=== PATIENT | male | born 1945 | race Caucasian/White ===

== ENCOUNTER 2019-05-25 14:19 | Inpatient (IN) | payer MEDICARE, OTHER ==
[~2019-05-25] VITALS: Ht 175.3 cm; Wt 82.1 kg
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
[2019-05-25 15:10] LABS: ALBUMIN 3.9 g/dL (3.4-5.0); BILIRUBIN,DIRECT 0.2 mg/dL (0.0-0.2); BILIRUBIN,TOTAL 0.9 mg/dL (0.2-1.0); CALCIUM, SERUM 9.2 mg/dL (8.5-10.1); CREATININE 1.3 mg/dL (0.6-1.3); POTASSIUM 4.6 mmol/L (3.5-5.1); TOTAL PROTEIN, SERUM 7.4 g/dL (6.4-8.2)
--- NOTE | 2019-05-25 15:21 | NUR ---
patient came back from CT
[2019-05-25] MEDS ORDERED: BUPR200T PO (15:43)
[2019-05-25] MEDS ORDERED: FINA5TAB11 PO (15:43)
[2019-05-25] MEDS ORDERED: PRAV40TA3 PO (15:43)
[2019-05-25] MEDS ORDERED: TRINTELLIX PO (15:43)
[2019-05-25] MEDS ORDERED: ONDA8TAB12 PO (15:43)
[2019-05-25] MEDS ORDERED: TAMS-12 PO (15:43)
[2019-05-25 15:52] LABS: BASOPHILS # (AUTO) 0.1 /CMM (0.0-0.2); EOSINOPHILS % (AUTO) 0.3 % (0.0-6.0); HEMATOCRIT 46 % (39-51); LYMPHOCYTES # (AUTO) 0.8 /CMM (0.8-4.8); LYMPHOCYTES % (AUTO) 11.4 % (20.0-44.0); MEAN CORPUSCULAR HGB CONC 34 g/dl (31.0-36.0); MEAN CORPUSCULAR VOLUME 95 fL (80-96); MONOCYTES # (AUTO) 0.3 /CMM (0.1-1.30); MONOCYTES % (AUTO) 3.9 % (2.0-12.0); NEUTROPHILS % (AUTO) 83.4 % (43.0-81.0); PLATELET COUNT (AUTO) 281 /CMM (150-450); WHITE BLOOD COUNT (AUTO) 7.2 K/uL (4.3-11.0)
[2019-05-25] MEDS ORDERED: ASPIRIN 325 MG TABLET ONE (15:56)
[2019-05-25] MEDS ORDERED: INSULIN REGULAR, HUMAN 100 UNIT/ML 10 ML VIAL SQ ONE (16:00)
[2019-05-25] MEDS ORDERED: ASPIRIN 325 MG TABLET PO ONE (16:00)
[2019-05-25] MEDS ORDERED: INSULIN REGULAR, HUMAN 100 UNIT/ML 10 ML VIAL ONE (16:04)
--- NOTE | 2019-05-25 16:19 | NUR ---
CALLED [facility] [phone] WILL CALL BACK.
--- NOTE | 2019-05-25 16:32 | NUR ---
TEXTED DR. PRESLEY FOR MRI APPROVAL.
--- NOTE | 2019-05-25 16:59 | NUR ---
Spoke with Ester at [facility]. No assigned physician. MD will call soon.
--- NOTE | 2019-05-25 17:16 | NUR ---
@17:14, Called [facility] at [phone]. Spoke with Cammie. Advised Cammie that we placed our first call to [place] at 16:19 and we haven't received any call from their MD. I explained Cammie that legally they have 30 min to call us back and we are not required to make another call. I advised Cammie that they have 10 min ro call us back. If no call will be received, we will admit the patient and Dorcas will be responsible for IP admission. Per Cammie, Dr. Mares will call us within 10 minutes. MENDEZ Douglas RN, made aware.
--- NOTE | 2019-05-25 17:27 | NUR ---
patient wheeled via wheelchair to MRI
--- NOTE | 2019-05-25 17:43 | NUR ---
patient came back from MRI
--- NOTE | 2019-05-25 18:35 | NUR ---
food provided to the patient.
--- NOTE | 2019-05-25 18:39 | NUR ---
[facility] Dr[facility] Mares will call back.
--- NOTE | 2019-05-25 19:18 | NUR ---
report given to Noelle for ayanna
--- NOTE | 2019-05-25 19:20 | NUR ---
Pt is using a urinal. Urine sample obtained and sent to lab.
--- NOTE | 2019-05-25 19:27 | NUR ---
Dr Mccabe is at the bedside speaking to the pt re: Repeat Troponin elevation.
--- NOTE | 2019-05-25 19:30 | NUR ---
PT REC'D A DINNER TRAY AND IS TOLERATING PO WELL. PT'S VSS.
--- NOTE | 2019-05-25 19:37 | NUR ---
CALLED [facility] FOR UPDATE, [facility] STILL WAITING FOR CADIOLOGIST TO CALL BACK
--- NOTE | 2019-05-25 19:58 | NUR ---
PAGED COMPLIANCE INTERN HEAD BOYS TENNIS COACH DR. BARBOZA
[2019-05-25 20:00] VITALS: BP 152/78
--- NOTE | 2019-05-25 20:00 | NUR ---
DR. BARBOZA ACCEPTS HERE
--- NOTE | 2019-05-25 20:35 | NUR ---
BED ASSIGNMENT DAVID [id number]
--- NOTE | 2019-05-25 20:37 | NUR ---
CALLING REPORT TO DAVID DE LA GARZA.
--- NOTE | 2019-05-25 21:11 | NUR ---
CALLING REPORT TO FREDERIC PIZARRO
--- NOTE | 2019-05-25 22:40 | NUR ---
RN NOTES SEEN AND EXAMINED BY TAMEKA AT BEDSIDE AND SPOKE AND GET DIRECT INFO TO PATIENT, AND INFORMED ABOUT POC.
[2019-05-25] MEDS ORDERED: MAG HYDROX/AL HYDROX/SIMETH 30 ML UDC PO PRN (23:00)
[2019-05-25] MEDS ORDERED: MAGNESIUM HYDROXIDE 30 ML UDC PO PRN (23:00)
[2019-05-25] MEDS ORDERED: Z GUARD REMEDY 2 OZ OINT TP PRN (23:00)
[2019-05-25] MEDS ORDERED: ONDANSETRON HCL/PF 4 MG/2 ML VIAL IVP PRN (23:00)
[2019-05-25] MEDS ORDERED: DEXTROSE 50%-WATER 50 ML DISP.SYRIN IV PRN (23:00)
[2019-05-25] MEDS ORDERED: ACETAMINOPHEN 325 MG TABLET PO PRN (23:00)
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
[2019-05-25] MEDS: IV NS 0.9% 1,000 ML IV PRN (23:35)
[2019-05-25] MEDS: ENOXAPARIN SODIUM 40 MG/0.4 ML DISP.SYRIN SQ SCH (23:36)
[2019-05-26] VITALS (9 sets, daily range): BP systolic 119–163; BP diastolic 59–93
--- NOTE | 2019-05-26 02:10 | NUR ---
RN NOTES CALLED AND SPOKE TO TAMEKA LADLE PULLER REGARDING PATIENT REQUESTED OF SLEEPING PILL, PER LADLE PULLER ITS NOT GOOD FOR HIM TO TAKE AT HIS LATE AND HE DOESN'T WANT THE PATIENT TO BE SLEEPY OR LETHARGY THAT INTERFERES THE ASSESSMENT IN THE MORNING. EXPLAINED RISK AND BENEFITS TO PATIENT AND PATIENT AGREED.
[2019-05-26 06:18] LABS: BASOPHILS # (AUTO) 0.1 /CMM (0.0-0.2); BASOPHILS % (AUTO) 0.8 % (0.0-2.0); EOSINOPHILS % (AUTO) 1.4 % (0.0-6.0); HEMATOCRIT 42 % (39-51); HEMOGLOBIN 14.7 g/dL (13.5-17.5); LYMPHOCYTES # (AUTO) 2.7 /CMM (0.8-4.8); MEAN CORPUSCULAR HGB CONC 35 g/dl (31.0-36.0); MEAN CORPUSCULAR VOLUME 93 fL (80-96); MONOCYTES # (AUTO) 0.6 /CMM (0.1-1.30); MONOCYTES % (AUTO) 6.5 % (2.0-12.0); NEUTROPHILS # (AUTO) 5.1 /CMM (1.8-8.9); NEUTROPHILS % (AUTO) 59.3 % (43.0-81.0); PLATELET COUNT (AUTO) 268 /CMM (150-450); RED BLOOD CELL COUNT(AUTO) 4.53 MIL/uL (4.5-6.0); WHITE BLOOD COUNT (AUTO) 8.5 K/uL (4.3-11.0)
[2019-05-26 06:34] LABS: ALBUMIN 3.4 g/dL (3.4-5.0); BILIRUBIN,TOTAL 0.7 mg/dL (0.2-1.0); CALCIUM, SERUM 8.5 mg/dL (8.5-10.1); MAGNESIUM 1.8 mg/dL (1.8-2.4); PHOSPHORUS 3.8 mg/dL (2.5-4.9); POTASSIUM 3.5 mmol/L (3.5-5.1); TOTAL PROTEIN, SERUM 6.8 g/dL (6.4-8.2)
[2019-05-26 06:42] LABS: THYROID STIMULATING HORMONE 1.006 uIU/mL (0.358-3.74)
--- NOTE | 2019-05-26 06:54 | NUR ---
RN NOTES PATIENT ASLEEP ABOUT 2-4 HRS ON BED. BREATHING EVEN AND UNLABORED IN RA SATURATION >92%. AFEBRILE VSS. NO CHANGE OF MENTAL STATUS. NO SIGNIFICANT WEAKNESSES PRESENT. NO SIGNIFICANT CHANGES. ALL NEEDS ATTENDED. USED URINAL FOR BLADDER. KEPT PT CLEAN AND DRY. TROPONIN STILL TRENDING UP. MD AWARE. WILL ENDORSED CONTINUITY OF CARE TO AM NURSE.
--- NOTE | 2019-05-26 07:30 | NUR ---
RN NOTE RECIEVED PATIENT IN BED AWAKE AND ALERT X 3. PT HOB BED ELEVATED. NO SOB. ON ROOM AIR. NO COMPLAINTS OF PAIN OR DISCOMFORT. WITH SALINE LOCK ON LAC. PLAN OF CARE DISCUSSED. VITAL SIGNS STABLE. WILL CONTINUE TO MONITOR.
[2019-05-26] MEDS: BLOOD SUGAR DIAGNOSTIC 1 EACH STRIP IN SCH ×4 (08:07→22:39)
[2019-05-26] MEDS: INSULIN REGULAR, HUMAN 100 UNIT/ML 3 ML VIAL SQ PRN ×4 (08:08→23:05)
[2019-05-26] MEDS: PANTOPRAZOLE 40 MG TABLET.DR PO SCH (08:09)
--- NOTE | 2019-05-26 08:31 | NUR ---
RN NOTES DR. KOHLI AT THE UNIT. MADE AWARE OF THE TROPONIN FROM 0.124 TO 0.146.
[2019-05-26] MEDS: TAMSULOSIN 0.4 MG CAP.SR.24H PO SCH (08:47)
[2019-05-26] MEDS: FINASTERIDE (5 MG) 5 MG TABLET PO SCH (08:47)
[2019-05-26] MEDS: ASPIRIN EC 81 MG TABLET.DR PO SCH (08:47)
[2019-05-26] MEDS ORDERED: ATORVASTATIN 10 MG TABLET PO SCH ×2 (09:00→22:00)
--- NOTE | 2019-05-26 11:00 | NUR ---
RN NOTES CONSENT FOR CTCA OBTAINED FROM THE PATIENT HIMSELF. PROCEDURE EXPLAINED BY DR. ANAND, PATIENT VERBALIZED UNDERSTANDING
[2019-05-26] MEDS: IV NS 0.9% 1,000 ML IV PRN (13:51)
[2019-05-26] MEDS ORDERED: IV NS 0.9% 250 ML IV ONE ×2 (14:36→16:02)
[2019-05-26] MEDS ORDERED: IOHEXOL-350 100 ML VIAL IV ONE ×2 (14:36→15:59)
[2019-05-26] MEDS ORDERED: CT SWABBABLE VALVE TRANS SET 1 EA INFUS.SET MC ONE ×2 (14:36→16:02)
--- NOTE | 2019-05-26 15:00 | NUR ---
RN NOTES PATIENT LEFT FOR CTCA
[2019-05-26] MEDS ORDERED: METOPROLOL TARTRATE INJ 5 MG/5 ML AMPUL ONE (15:36)
[2019-05-26] MEDS: DOCUSATE SODIUM 100 MG CAPSULE PO SCH (17:34)
--- NOTE | 2019-05-26 19:00 | NUR ---
RN NOTE PATIENT AWAKE AND ALERT WITHOUT COMPLAINTS OF PAIN OR DISCOMFORT. IVF RUNNING AT 75ML/HR ORDERED. ENDORSED TO ONCOMING RN.
--- NOTE | 2019-05-26 19:30 | NUR ---
OYSTER SORTER NOTE PATIENT IN BED A/O X 4. PATIENT CURRENTLY BEING SEEN BY ELLY REBOLLEDO. PATIENT SITTING UP IN BED NO S/S OF ACUTE DISTRESS PATIENT HR 69. PATIENT DENIES CHEST PAIN/SOB ON RA. NO A/A OF ACUTE DISTRESS. PATIENT HAS LAC 20 G RUNNING AT 75 ML/HR NO S/S OF INFECTION OR INFILTRATION. POC AND GOALS FOR THE SHIFT DISCUSSED WITH PATIENT, PATIENT VERBALIZE UNDERSTANDING. PATIENT CALL LIGHT IN HAND. INSTRUCTIONS ON USE OF CALL LIGHT GIVEN. SAFETY PRECAUTIONS IN PLACE, RN WILL CONTINUE TO MONITOR FOR CHANGES.
[2019-05-26] MEDS ORDERED: PRAVASTATIN SODIUM 20 MG TABLET PO SCH (22:00)
[2019-05-26] MEDS: ENOXAPARIN SODIUM 40 MG/0.4 ML DISP.SYRIN SQ SCH (22:52)
[2019-05-27] VITALS (8 sets, daily range): BP systolic 104–159; BP diastolic 64–82
[2019-05-27] MEDS: HYDROCODONE/APAP 5/325MG 1 EACH TABLET PO PRN ×3 (01:58→16:00)
--- NOTE | 2019-05-27 02:21 | NUR ---
CATERING SERVICE MANAGER NOTE PATIENT REPORT GIVEN TO MARIAJOSE DE LA GARZA FOR DINH.
[2019-05-27] MEDS: IV NS 0.9% 1,000 ML IV PRN (05:47)
[2019-05-27 06:23] LABS: BASOPHILS % (AUTO) 0.7 % (0.0-2.0); EOSINOPHILS % (AUTO) 2.7 % (0.0-6.0); HEMATOCRIT 42 % (39-51); HEMOGLOBIN 14.7 g/dL (13.5-17.5); LYMPHOCYTES # (AUTO) 2.8 /CMM (0.8-4.8); LYMPHOCYTES % (AUTO) 41.7 % (20.0-44.0); MEAN CORPUSCULAR HGB CONC 35 g/dl (31.0-36.0); MEAN CORPUSCULAR VOLUME 93 fL (80-96); MONOCYTES # (AUTO) 0.4 /CMM (0.1-1.30); MONOCYTES % (AUTO) 6.6 % (2.0-12.0); NEUTROPHILS # (AUTO) 3.3 /CMM (1.8-8.9); NEUTROPHILS % (AUTO) 48.3 % (43.0-81.0); PLATELET COUNT (AUTO) 259 /CMM (150-450); RED BLOOD CELL COUNT(AUTO) 4.48 MIL/uL (4.5-6.0); WHITE BLOOD COUNT (AUTO) 6.8 K/uL (4.3-11.0)
[2019-05-27 06:36] LABS: CALCIUM, SERUM 8.6 mg/dL (8.5-10.1); POTASSIUM 3.6 mmol/L (3.5-5.1)
--- NOTE | 2019-05-27 06:42 | NUR ---
TOBACCO PACKING MACHINE OPERATOR CLOSING NOTES PATIENT RESTING IN BED. NO ACUTE CHANGES SINCE DINH TRANSFER. BREATHING EVEN AND UNLABORED ON ROOM AIR. NO SOB OBSERVED. DENIES PAIN OR DISCOMFORT. SR ON TELE MONITOR. REMAINED AFEBRILE. IVF INFUSING AT 75ML/HR. REFUSED TO HAVE BED SHEETS CHANGED THIS AM. PER PATIENT, "HE'S OK FOR NOW." ALL OTHER NEEDS ATTENDED TO. SAFETY MEASURES IN PLACE. CALL LIGHT WITHIN REACH. WILL ENDORSE TO ONCOMING NURSE FOR DINH.
--- NOTE | 2019-05-27 07:35 | NUR ---
OUTBOUND TELEMARKETING REPRESENTATIVE NOTES PATIENT RECEIVED RESTING INSIDE ROOM. AWAKE, ALERT AND ORIENTED X 3, VERBALLY RESPONSIVE AND RESPONDS TO VERBAL AND TACTILE STIMULI. BREATHING EVEN AND UNLABORED. NO ACUTE DISTRESS NOTED. PATIENT CALM AND RELAXED. SAFETY PRECAUTIONS IN PLACE. WILL CONTINUE TO MONITOR. BED LOCKED AND IN LOW POSITION. BILATERAL UPPER SIDE RAILS UP AND LOCKED. CALL LIGHT WITHIN EASY REACH
[2019-05-27] MEDS: ASPIRIN EC 81 MG TABLET.DR PO SCH (08:33)
[2019-05-27] MEDS: PANTOPRAZOLE 40 MG TABLET.DR PO SCH (08:33)
[2019-05-27] MEDS: TAMSULOSIN 0.4 MG CAP.SR.24H PO SCH (08:33)
[2019-05-27] MEDS: FINASTERIDE (5 MG) 5 MG TABLET PO SCH (08:33)
[2019-05-27] MEDS: DOCUSATE SODIUM 100 MG CAPSULE PO SCH ×2 (08:33→16:00)
[2019-05-27] MEDS: BLOOD SUGAR DIAGNOSTIC 1 EACH STRIP IN SCH ×3 (08:34→17:20)
[2019-05-27] MEDS: INSULIN REGULAR, HUMAN 100 UNIT/ML 3 ML VIAL SQ PRN ×3 (08:37→17:21)
--- NOTE | 2019-05-27 13:10 | NUR ---
AUTOMOTIVE BUYER NOTES CHERRY PICKER OPERATOR AT BEDSIDE
--- NOTE | 2019-05-27 15:22 | NUR ---
SECURITY THREAT ANALYST NOTES PATIENT SEEN AND EXAMINED BY DR CORTEZ NEURO, VERBALIZED THAT HE SAW THE EEG AND ITS CLEAR. WITH ORDER TO GIVE PATIENT KEPPRA 1000 MG PO NOW AND PATIENT IS CLEARED TO DC FROM HIS PERSPECTIVE BUT PATIENT WILL NEED PRESCRIPTION FOR KEPPRA 500mg BID. PATIENT MADE AWARE AND VERBALIZED UNDERSTANDING. DR CORTEZ PLACED ORDER FOR KEPPRA. BLAINE GARCIA NP MADE AWARE OF RECOMMENDATION AND VERBALIZED OK. WILL CONTINUE TO MONITOR
[2019-05-27] MEDS ORDERED: LEVETIRACETAM (250 MG) 250 MG TABLET PO SCH (15:30)
[2019-05-27] MEDS ORDERED: LEVE500T9 PO (15:34)
--- NOTE | 2019-05-27 17:02 | NUR ---
SIGNALS OFFICER NOTES PATIENT WITH DISCHARGE ORDER FROM BLAINE GARCIA NP, OK TO OR HOME. WITH PRESCRIPTION FOR KEPPRA, SENT TO PATIENT'T PREFERRED PHARMACY. PLACED CALL TO [facility] ([phone]) AND SPOKE WITH JOBY PHARMACIST, VERBALIZED THAT THEY HAVE RECIEVED PRESCRIPTION AND WILL BE PREPARING MEDICATION FOR PATIENT. PATIENT MADE AWARE AND VERBALIZE UNDERSTANDING. WILL CONTINUE TO MONITOR
--- NOTE | 2019-05-27 18:56 | NUR ---
SEMIAUTOMATIC STITCHER OPERATOR NOTES PATIENT FOR DISCHARGE HOME. DISCHARGE INSTRUCTIONS AND EDUCATION PROVIDED TO PATIENT. CRIB ATTENDANT REMOVED AND RETURNED TO TELE STATION. PATIENT BELONGINGS COMPLETE ON DISCHARGE. NO REPORT OF MISSING INVENTORY. IV REMOVED, TIP INTACT, PRESSURE DRESSING PLACED ON SITE. PATIENT ACCOMPANIED BY NURSING STAFF TO PARKING LOT. LEFT HOSPITAL PREMISES VIA PRIVATE CAR WITH FRIEND. NO NEW SKIN BREAKDOWN NOTED. DENIES ANY PAIN OR DISCOMFORT. NO ACUTE DISTRESS ON DISCHARGE. MD AWARE OF DISCHARGE
== END 2019-05-27 18:50 | disposition home or self-care (01) | DRG 913 ==
LOC: ER 14:20 → TELE-TD 20:36 → TELE1 05-26 11:21
PROVIDERS: ADMIT Hospitalist; ATTEND Nurse Practitioner Acute Care
DX: S09.90XA Unspecified injury of head, initial encounter (principal); I21.A1 Myocardial infarction type 2; G90.8 Other disorders of autonomic nervous system; N40.0 Benign prostatic hyperplasia without lower urinary tract symptoms; V43.52XA Car driver injured in collision with other type car in traffic accident, initial encounter; Y92.89 Other specified places as the place of occurrence of the external cause; E78.5 Hyperlipidemia, unspecified; J45.909 Unspecified asthma, uncomplicated; S13.4XXA Sprain of ligaments of cervical spine, initial encounter; E11.65 Type 2 diabetes mellitus with hyperglycemia; X58.XXXA Exposure to other specified factors, initial encounter; Z87.891 Personal history of nicotine dependence; E78.00 Pure hypercholesterolemia, unspecified; R40.2142 Coma scale, eyes open, spontaneous, at arrival to emergency department; R40.2252 Coma scale, best verbal response, oriented, at arrival to emergency department; R40.2362 Coma scale, best motor response, obeys commands, at arrival to emergency department
CPT/HCPCS: 36415; 70450-TC; 70551-TC; 71045-TC; 72125-TC; 75574; 80048-TC; 80053-TC; 80061-TC; 80076-TC; 82962-TC; 83735-TC; 84100-TC; 84443-TC; 84484-TC; 85025-TC; 85730-TC; 87081-TC; 93307-TC; 93880-TC; 95819-TC; 97116-TC; 97530-TC; G0378; J1650; J1815; J3490; J7030; J7042; J7050; Q9967